=== PATIENT | female | born 1965 | race Caucasian/White ===

== ENCOUNTER → 2019-04-09 15:54 | Outpatient (CLI) | payer OTHER, SELFPAY ==
--- NOTE | 2019-04-09 15:56 | DI.RAD.S_ITS ---
PROCEDURE: XR CHEST 2V INDICATIONS: Cough x 6 weeks TECHNIQUE: 2 views of the chest were acquired. COMPARISON: None. FINDINGS: Surgical changes and devices: Sternotomy. Lungs and pleura: Lungs are clear. No pleural effusions or pneumothorax. Mediastinum: Mediastinal contours are normal. Heart size is normal. Bones and chest wall: No suspicious bony abnormalities. Soft tissues appear unremarkable. IMPRESSION: No acute cardiopulmonary disease. Dictated by: Aimee Narvaez M.D. on 04/09/2019 at 16:30 Approved by: Aimee Narvaez M.D. on 04/09/2019 at 16:30
== END ==
PROVIDERS: PCP Nurse Practitioner Family; Visit Provider Nurse Practitioner
DX: R05 Cough (principal)
CPT/HCPCS: 71046

== ENCOUNTER → 2019-06-19 18:11 | Outpatient (CLI) | payer OTHER, SELFPAY | PROVIDERS: PCP Nurse Practitioner Family; Visit Provider Physician Assistant | DX: J02.9 Acute pharyngitis, unspecified (principal) | CPT/HCPCS: 87070 ==

== ENCOUNTER 2021-05-06 01:42 | Emergency (ER) | payer OTHER, SELFPAY ==
[2021-05-06 01:49] VITALS: BP 127/73; PULSE 92; RESP 18; TEMP 36.2; O2SAT 99; BMI 28.3
--- NOTE | 2021-05-06 02:09 | DI.CT.S_ITS ---
PROCEDURE: CT ABDOMEN PELVIS W CON INDICATIONS: severe right lower quadrant pain, local peritonitis TECHNIQUE: After the administration of oral and IV contrast, axial sections were acquired from the lung bases to the pubic symphysis. Coronal and sagittal reformats were performed. For radiation dose reduction, the following was used: automated exposure control, adjustment of mA and/or kV according to patient size. COMPARISON: None. FINDINGS: Image quality: Excellent. Lung bases: On series 3, image 5, there is a 3 mm soft tissue nodule noted. The lung bases are otherwise unremarkable. Heart: No significant findings. ABDOMEN: Liver: There is prominent in size and demonstrates normal overall density. No suspicious liver lesions are seen. Gallbladder: Unremarkable. Biliary ducts: Unremarkable. Pancreas: Unremarkable. Spleen: Unremarkable. Adrenal Glands: Unremarkable. Kidneys and Ureters: Unremarkable. Stomach and Bowel: In this patient with this given history, scrutiny is given to the appendix. The appendix appears normal. Distal colonic diverticulosis is seen. There is focal wall thickening seen involving the sigmoid colon, with moderate surrounding inflammatory change and a small amount of free fluid. No abscess can be seen. A moderate amount of stool is seen within the colon. No dilated loops of small bowel are seen. Peritoneum: No free air. Ventral Wall: No hernia. Abdominal Nodes: No retroperitoneal or mesenteric adenopathy by size criteria. Vessels: Aorta and inferior vena cava are normal in size. PELVIS: Pelvic Organs: The uterus appears normal. No adnexal masses are seen on either side. Bladder: Unremarkable. Pelvic Nodes: No enlarged lymph nodes. Miscellaneous: No inguinal hernias are seen. Bones: Focal degenerative change can be seen at L4-L5 and L5-S1. Milder degenerative changes are seen elsewhere. Minimal levoconvex scoliotic curvature is seen. IMPRESSION: Moderate sigmoid diverticulitis. No patricio findings of perforation or abscess can be seen. Normal appendix. There is a moderate amount of stool seen within the colon. Please correlate with an underlying history of constipation. 3 mm left lower lobe soft tissue nodule seen. By published criteria, no specific imaging follow-up recommended, although attention should be paid to this focus on any future follow-up studies. Incidental note is made of: Hepatomegaly Focal lower lumbar spine degenerative change Note: No significant discrepancy from the preliminary report. Dictated by: Bryon Lake M.D. on 05/06/2021 at 8:01 Approved by: Bryon Lake M.D. on 05/06/2021 at 8:07
[2021-05-06] MEDS: SODIUM CHLORIDE 0.9% 1,000 ML 150 ML IV (02:27)
[2021-05-06 02:29] LABS: Add Manual Diff / Slide Review NO; Basophils Absolute Auto 0 /uL (0-100); Basophils Percent Auto 0.2 % (0-2); Eosinophils Absolute Auto 0 /uL (0-450); Eosinophils Percent Auto 0.5 % (2-4); Hematocrit 36.9 % (36-46); Lymphocytes Absolute Auto 1000 /uL (1100-4500); Lymphocytes Percent Auto 11.8 % (25-40); Mean Corpuscular HGB Conc 35.2 % (30-36); Mean Corpuscular Hemoglobin 29.9 PG (26-34); Mean Corpuscular Volume 84.8 fL (80-100); Monocytes Absolute Auto 700 /uL (0-900); Monocytes Percent Auto 7.5 % (3-14); Neutrophils Absolute Auto 7000 /uL (1500-7000); Platelet Count 194 X10^3/uL (150-400); Red Blood Cell Count 4.35 X10^6/uL (4.0-5.2); Red Cell Distribution Width 13.1 % (11.6-14.8); White Blood Cell Count 8.8 X10^3/uL (4.5-11.0)
[2021-05-06 02:39] LABS: Alanine Aminotransferase 8 IU/L (<35); Albumin 4.3 g/dL (3.5-5.0); Albumin Globulin Ratio 1.4 (1.0-2.8); Alkaline Phosphatase 76 U/L (38-126); Aspartate Aminotransferase 21 IU/L (14-36); BUN Creatinine Ratio 24.6 (6-22); Bilirubin Total 0.7 mg/dL (0.2-1.3); Blood Urea Nitrogen 14 mg/dL (7-17); Calcium 9.5 mg/dL (8.4-10.2); Carbon Dioxide 30 mmol/L (22-32); Chloride 105 mmol/L (98-107); Estimated Glomerular Filt Rate > 60.0 mL/min (>60); Glucose 116 mg/dL (70-100); HEMOLYSIS < 15 (0-50); Lipase 418 U/L (23-300); Sodium 139 mmol/L (137-145); Total Protein 7.3 g/dL (6.3-8.2)
--- NOTE | 2021-05-06 03:43 | ED_ITS ---
HPI - Abdominal Pain General Chief Complaint: Abdominal Pain Stated Complaint: lower abdominal pain Time Seen by Provider: 05/06/21 02:02 Source: patient Mode of arrival: Ambulatory History of Present Illness HPI narrative: 55-year-old female nonsmoker with noncontributory medical history presents with a chief complaint of gradually worsening lower abdominal pain over the past few hours. She states that it is of stabbing and cramping pain in her lower abdomen that is made worse by motion and improves with rest. She is nauseated but denies any vomiting. She denies any fever or chills. She has had no urinary complaints such as dysuria, frequency or urgency. She denies any history of the same. She has had no change in medications or diet. She denies recent travel or use of antibiotics Related Data Previous Rx's Medication Instructions Recorded amoxicillin 875 mg-potassium 1 tab PO BID #20 tab 05/06/21 clavulanate 125 mg tablet (Augmentin) Allergies Allergy/AdvReac Type Severity Reaction Status Date / Time No Known Drug Allergies Allergy Verified 05/06/21 02:27 Review of Systems Review of Systems Narrative: GENERAL: Denies chills, fatigue, malaise, fever, sweats. HEENT: Denies sinus pain, ear pain, sore throat, difficulty swallowing, dizziness. RESPIRATORY: Denies dyspnea, cough, wheezing, hemoptysis, sputum. CARDIOVASCULAR: Denies chest pain, palpitations, orthopnea, edema, GASTROINTESTINAL: See HPI : Denies dysuria, frequency, incontinence, hematuria, urinary retention. MUSCULOSKELETAL: denies weakness, joint pain, or bony pain SKIN: Denies rash, skin lesions, or other NEUROLOGIC: Denies weakness, headache, numbness, change in speech, confusion, seizures, incoordination. PSYCHIATRIC: No concerning psychosocial issues. 12 point review of systems is negative except for those stated above Patient History Social History Smoking Status: Never smoker Smoking Status: Never smoker Substance Use Type: does not use Exam Narrative Exam Narrative: GENERAL: 55 year old patient appears stated age. Well-developed patient, in mild distress. HEAD: Atraumatic. Normocephalic. EYES: Pupils equal round and reactive. Extraocular motions intact. No scleral icterus. No injection or drainage. ENT: Nose without bleeding, purulent drainage. Throat without erythema, tonsillar hypertrophy or exudate. Airway patent. NECK: Trachea midline. Non tender CARDIOVASCULAR: Regular rate and rhythm without murmurs, gallops, or rubs. RESPIRATORY: Clear to auscultation. Breath sounds equal bilaterally. No wheezes, rales, or rhonchi. GASTROINTESTINAL: Abdomen soft, lower abdomen tender to palpate, nondistended. EXTREMITIES: No edema or joint tenderness. BACK: Nontender without deformity or crepitance. No flank tenderness. NEURO: AOx3. SKIN: No rash or erythema of visible areas Initial Vital Signs Initial Vital Signs: Vital Signs Temperature 97.2 F L 05/06/21 01:49 Pulse Rate 92 H 05/06/21 01:49 Respiratory Rate 18 05/06/21 01:49 Blood Pressure 127/73 05/06/21 01:49 Pulse Oximetry 99 05/06/21 01:49 Course Orders Ordered: Discontinued Medications Amoxicillin/Clavulanate Potassium (Amoxicillin/Clav 875/125 Mg) 1 tab PO NOW ONE Stop: 05/06/21 03:45 Last Admin: 05/06/21 03:59 Dose: 1 tab Documented by: RACHELLE Sodium Chloride (Normal Saline 0.9%) 1,000 mls @ 150 mls/hr IV CONT ARVIND Last Admin: 05/06/21 02:27 Dose: 150 mls/hr Documented by: TEE Vital Signs Vital signs: Vital Signs - 8 hr 05/06/21 01:49 05/06/21 03:57 Temperature 97.2 F L Pulse Rate 92 H 72 Respiratory Rate 18 16 Blood Pressure 127/73 119/74 Pulse Oximetry 99 99 MDM - Abdominal Pain Lab Data Result diagrams: 05/06/21 02:24 05/06/21 02:24 Labs: Lab Results 05/06/21 05/06/21 Range/Units 02:24 02:24 WBC 8.8 (4.5-11.0) X10^3/uL RBC 4.35 (4.0-5.2) X10^6/uL Hgb 13.0 (12.0-16.0) g/dL Hct 36.9 (36-46) % MCV 84.8 (80-100) fL MCH 29.9 (26-34) PG MCHC 35.2 (30-36) % RDW 13.1 (11.6-14.8) % Plt Count 194 (150-400) X10^3/uL Neut % (Auto) 80.0 H (50-75) % Lymph % (Auto) 11.8 L (25-40) % [place] % (Auto) 7.5 (3-14) % Eos % (Auto) 0.5 L (2-4) % Baso % (Auto) 0.2 (0-2) % Neut # (Auto) 7000 (5660-8409) /uL Lymph # (Auto) 1000 L (0426-5910) /uL [place] # (Auto) 700 (0-900) /uL Eos # (Auto) 0 (0-450) /uL Baso # (Auto) 0 (0-100) /uL Sodium 139 (137-145) mmol/L Potassium 4.0 (3.4-5.1) mmol/L Chloride 105 (98-107) mmol/L Carbon Dioxide 30 (22-32) mmol/L BUN 14 (7-17) mg/dL Creatinine 0.57 (0.52-1.04) mg/dL Estimated GFR > 60.0 (>60) mL/min BUN/Creatinine Ratio 24.6 H (6-22) Glucose 116 H (70-100) mg/dL Calcium 9.5 (8.4-10.2) mg/dL Total Bilirubin 0.7 (0.2-1.3) mg/dL AST 21 (14-36) IU/L ALT 8 (<35) IU/L Alkaline Phosphatase 76 (38-126) U/L Total Protein 7.3 (6.3-8.2) g/dL Albumin 4.3 (3.5-5.0) g/dL Globulin 3.0 (1.7-4.1) g/dL Albumin/Globulin Ratio 1.4 (1.0-2.8) Lipase 418 H (23-300) U/L Point of care testing: Urine Dip Bedside Urine Glucose Negative Bedside Urine Bilirubin - Negative Bedside Urine Ketone - Negative Urine Specific Opal 1.025 Bedside Urine Occult Blood - Negative Bedside Urine pH 6 Bedside Urine Protein - Negative Bedside Urine Urobilinogen - Negative Bedside Urine Nitrite - Negative Bedside Urine Leukocytes - Negative Esterase Imaging Data CT scan - abdomen/pelvis: Radiologist's Impression: Launch?[address] [address] [address] Scan Report Signed Patient: Jessica Kim MR#: [id number] : 1965 Acct:[id number] Age/Sex: 55 / F Date of Service: 05/06/21 Loc: ED Accession Number: [id number] ?? Procedure: CT abdomen pelvis w con Ordering Provider: Sarabjit Hunter D.O. PROCEDURE:? CT ABDOMEN PELVIS W CON ? INDICATIONS:? severe right lower quadrant pain, local peritonitis ? TECHNIQUE:? After the administration of oral and IV contrast, axial sections were acquired from the lung bases to the pubic symphysis.? Coronal and sagittal reformats were performed.? For radiation dose reduction, the following was used:? automated exposure control, adjustment of mA and/or kV according to patient size. ? COMPARISON:? None. ? FINDINGS:? Image quality:? Excellent.? ? Lung bases:? On series 3, image 5, there is a 3 mm soft tissue nodule noted.? The lung bases are otherwise unremarkable. Heart:? No significant findings. ? ? ABDOMEN: Liver:? There is prominent in size and demonstrates normal overall density.? No suspicious liver lesions are seen. Gallbladder:? Unremarkable.? ? Biliary ducts:? Unremarkable.? ? Pancreas:? Unremarkable.? ? Spleen:? Unremarkable.? ? Adrenal Glands:? Unremarkable.? ? Kidneys and Ureters:? Unremarkable.? ? ? Stomach and Bowel:? In this patient with this given history, scrutiny is given to the appendix.? The appendix appears normal. Distal colonic diverticulosis is seen.? There is focal wall thickening seen involving the sigmoid colon, with moderate surrounding inflammatory change and a small amount of free fluid.? No abscess can be seen.? A moderate amount of stool is seen within the colon. No dilated loops of small bowel are seen. Peritoneum:? No free air.? ? Ventral Wall: ? No hernia.? Abdominal Nodes:? No retroperitoneal or mesenteric adenopathy by size criteria.? Vessels:? Aorta and inferior vena cava are normal in size.? ? PELVIS: Pelvic Organs: ? The uterus appears normal.? No adnexal masses are seen on either side.? Bladder:? Unremarkable.? ? Pelvic Nodes: No enlarged lymph nodes.? Miscellaneous: No inguinal hernias are seen. ? ? ? Bones:? Focal degenerative change can be seen at L4-L5 and L5-S1.? Milder degenerative changes are seen elsewhere.? Minimal levoconvex scoliotic curvature is seen. ? ? IMPRESSION:? Moderate sigmoid diverticulitis.? No patricio findings of perforation or abscess can be seen. ? Normal appendix. ? There is a moderate amount of stool seen within the colon. Please correlate with an underlying history of constipation.? ? 3 mm left lower lobe soft tissue nodule seen.? By published criteria, no specific imaging follow-up recommended, although attention should be paid to this focus on any future follow-up studies. ? ? Incidental note is made of: Hepatomegaly Focal lower lumbar spine degenerative change ? ? Note: No significant discrepancy from the preliminary report. ? Dictated by: Bryon Lake M.D. on 05/06/2021 at 8:01 ? ? Approved by: Bryon Lake M.D. on 05/06/2021 at 8:07 ? MDM Narrative Medical decision making narrative: Multiple etiologies for patient's symptoms considered including: [Appendicitis versus kidney stone versus ovarian problem vs. bowel obstruction vs. other Patient's symptoms improved over duration of stay with above-stated therapies. Pain is well controlled, she is tolerating orals without difficulty. Findings and discharge diagnosis discussed with patient/family followed by verbalization of understanding Return precautions discussed with patient/family whom verbalize understanding. Discharge Plan Departure Patient Disposition: Home Clinical Impression: Diverticulitis Instructions: DI for Diverticulitis Activity Restrictions/Additional Instructions: *You have been diagnosed with [diverticulitis without evidence of abscess or perforation *What to do: *Please continue to take your regular medications as directed. [ x] New medication prescriptions sent to your pharmacy: [[facility] in [place]] [ ] New medication written as a paper prescription [ ] No new medications given *Please follow up with your primary care provider in 2-3 days, call for an appointment. Let them know you were seen in the Emergency Department and that we ask that you be seen in follow up. We will electronically transmit a record of today's note if your PCP is in our system * as we discussed, please consider a clear liquid diet for the next 24-48 hours *Return to Emergency Department if you should have any new, worsening or concerning symptoms, such as [fever greater than 101 F, shaking chills, worsening pain, persistent vomiting or other bothersome symptoms] Prescriptions: New amoxicillin-pot clavulanate [Augmentin] 875-125 mg tablet 1 tab PO BID Qty: 20 0RF Referrals: Myrna Abel PA-C [Primary Care Provider] -
[2021-05-06 03:57] VITALS: BP 119/74; PULSE 72; RESP 16; O2SAT 99
[2021-05-06] MEDS: AMOXICILLIN/CLAV 875/125 MG 1 TAB PO (03:59)
== END 2021-05-06 04:16 | disposition home or self-care (01) ==
PROVIDERS: Emergency Provider Emergency Medicine; PCP Physician Assistant Medical
DX: K57.32 Diverticulitis of large intestine without perforation or abscess without bleeding (principal)
CPT/HCPCS: 36415; 74177; 80053; 81003; 83690; 85025; 99284; Q9967

== ENCOUNTER → 2021-05-20 13:24 | Outpatient (CLI) | payer OTHER, SELFPAY ==
--- NOTE | 2021-05-20 13:26 | DI.MG.S_ITS ---
BILATERAL DIGITAL SCREENING MAMMOGRAM 3D/2D WITH CAD: 05/20/2021 CLINICAL: Routine screening. Comparison is made to exams dated: 05/14/2018 mammogram, 04/30/2017 mammogram, and 03/12/2016 mammogram - [facility]. There are scattered fibroglandular elements in both breasts. Current study was also evaluated with a Computer Aided Detection (CAD) system. No significant masses, calcifications, or other findings are seen in either breast. There has been no significant interval change. IMPRESSION: NEGATIVE There is no mammographic evidence of malignancy. A 1 year screening mammogram is recommended. This exam was interpreted at Station ID: [id number]. NOTE: For mammograms, a report in lay terms will be sent to the patient. Approximately 15% of breast malignancies will not be visualized mammographically. In the management of a palpable breast mass, a negative mammogram must not discourage biopsy of a clinically suspicious lesion. Electronically Signed By: Campbell turk/suraj:05/22/2021 08:02:22 letter sent: Normal Exam ACR BI-RADS Category 1: Negative [id number]
== END ==
PROVIDERS: PCP Nurse Practitioner Family; Referring Provider Nurse Practitioner Family; Visit Provider Nurse Practitioner Family
DX: Z12.31 Encounter for screening mammogram for malignant neoplasm of breast (principal)
CPT/HCPCS: 77063; 77067

== ENCOUNTER 2021-09-14 12:54 | Day surgery (SDC) | payer OTHER, SELFPAY ==
[2021-09-14] VITALS (7 sets, daily range): BP systolic 110–135; BP diastolic 74–84; PULSE 70–97; RESP 16; TEMP 36.4–37.2; O2SAT 98–99; BMI 29.2
--- NOTE | 2021-09-14 | DI.RAD.S_ITS ---
PROCEDURE: XR ABDOMEN 1V INDICATIONS: Rule out free air TECHNIQUE: One view of the abdomen acquired. Lateral decubitus. COMPARISON: [facility], CT, CT ABDOMEN PELVIS W CON, 05/06/2021, 2:53. FINDINGS: Surgical changes and devices: None. Bowel: Prominent bowel gas in the nondependent right abdomen. This mostly appears to be within the colon. No free air is seen. Soft tissues: No suspicious abdominal calcifications. Visualized solid organ contours appear normal in size. Right hemithorax appears clear. Bones: No suspicious bony lesions. IMPRESSION: No free air identified. Prominent bowel gas (likely colonic) in the right abdomen. Consider additional radiographic views of the abdomen or CT abdomen pelvis. Dictated by: Jason Sabillon M.D. on 09/14/2021 at 16:29 Approved by: Jason Sabillon M.D. on 09/14/2021 at 16:30
--- NOTE | 2021-09-14 | PATH_ITS ---
[facility] Accession Number: [id number] . 01 Material submitted: . sigmoid colon - SIGMOID LESION . 01 Diagnosis: Sigmoid Colon, Biopsy: Ulcerated colonic mucosa with foreign body giant cell reaction. Please see comment. Negative for dysplasia and malignancy. MRV 09/19/2021 1330 Local . 01 Comment: The sigmoid biopsies show hyperplastic colonic mucosa with active inflammation and ulceration with an accompanying foreign body giant cell reaction. No obvious viral cytopathic effects or paracytic organisms are identified. The differential diagnosis includes infection, medication-related mucosal injury, foreign body reaction (so-called cereal granuloma), and diverticular disease-associated colitis. There is no evidence of dysplasia or malignancy. . 01 Electronically signed: . Babs Burger MD, Pathologist NPI- [id number] . 01 Gross description: . SIGMOID LESION: Received in formalin are 2 fragment(s) of orellana, soft tissue measuring 0.3 x 0.3 x 0.2 cm to 0.2 x 0.2 x 0.1 cm submitted entirely in 1 cassette(s) /CPE 09/16/2021 0258 Local . 01 Pathologist provided ICD-10: Z86.010 . 01 CPT . 982552 Specimen Comment: A courtesy copy of this report has been sent to [phone] Performed at: 01 [facility] [address] [place] [address], [place], [place] [id number] MD Nolan Hagen MD Phone: [phone]
[2021-09-14] MEDS: LACTATED RINGERS 1,000 ML 42 ML IV (13:20)
--- NOTE | 2021-09-14 15:10 | PM.HP.1 ---
History of Present Illness History of Present Illness Date Patient Seen: 09/14/21 Time Patient Seen: 15:10 Chief complaint: SDC Narrative: 56-year-old woman who had a colonoscopy about 5 years ago with polyps removed. She also has a family history of colon cancer with her mother was diagnosed with colon cancer in her 40s and also a second time later and life. Patient History Medical History (Updated 09/14/21 @ 15:11 by John Gomez MD) Dyspareunia Encounter for wellness examination in adult (03/2021) Hepatomegaly (04/2021) History of chicken pox Left lower lobe pulmonary nodule (04/2021) MRSA elsewhere/NOS (~2017) Pap smear of cervix shows high risk HPV present (~04/2019) Pharyngitis Rash due to allergy Raynaud's phenomenon Vertigo (09/25/19) Surgical History (Updated 05/11/21 @ 09:23 by Jyo Moralez) History of open heart surgery (~1969) Family & Social History Family History (System 05/11/21 @ 09:23 by Joy Moralez) Mother Cancer Hypertension Stroke Brother Diabetes mellitus Hypertension Hyperlipidemia Stroke Heart disease Obesity Grandfather Diabetes mellitus Social History: household members spouse other Walking and Running Tobacco & Substance use: Smoking Status Never smoker alcohol intake never Substance Use Type does not use Meds Home Medications and Allergies Home Medications Medication Instructions Recorded Confirmed Type multivitamin 1 tab PO DAILY 01/22/19 09/14/21 History sodium sul 1.479 gram-potas ch See Rx Instructions PO PER PKG DIR 08/28/21 Rx 0.188 gram-magnes sul 0.225 gram #24 tab tablet (Sutab) Allergies Allergy/AdvReac Type Severity Reaction Status Date / Time amoxicillin [From Augmentin] Allergy Intermediate Rash Verified 06/26/21 09:54 clavulanic acid Allergy Intermediate Rash Verified 06/26/21 09:54 [From Augmentin] Exam Vital Signs (past 8 hours): - 09/14/21 13:09 Temperature 98.9 F Pulse Rate 75 Respiratory Rate 16 Blood Pressure 115/74 Pulse Oximetry 99 Oxygen Delivery Method Room Air Const General: healthy appearing Resp Effort & Inspection: normal respiratory effort Assessment & Plan Assessment and plan (1) Personal history of colonic polyps: Status: Acute Plan 56-year-old woman with a history of colon polyps and a family history of colon cancer. We reviewed the risks and benefits of colonoscopy and she would like to proceed. Time Spent With Patient Critical Care time: I spent a total of [] minutes of critical care time on this patient's care today; this time is exclusive of procedural time.
--- NOTE | 2021-09-14 15:37 | SUR.OPER ---
1527: Anesthesia provider requested by Dr Gomez. Dr Sanchez arrived to administer sedation for patient for remainder of procedure. Please see anesthesia record for medications administered after 1526.
[2021-09-14] MEDS: MIDAZOLAM 5 MG/5 ML VIAL 8 MG IV (15:45)
[2021-09-14] MEDS: fentaNYL 250 MCG/5 ML INJ 225 MCG IV (15:45)
--- NOTE | 2021-09-14 15:56 | PM.OP.COLON ---
Operative Date/Time/Diagnoses Date of procedure: 09/14/21 Time of procedure: 15:56 Pre-op diagnosis: Personal history of colon polyps and family history of colon cancer Post-op diagnosis: same Procedure & Clinicians Study performed: Colonoscopy Same procedure as scheduled: Yes Procedure Notes Procedure in detail: Surgeon: John Gomez MD Procedure: The patient was brought to the endoscopy suite, placed in left lateral decubitus position. The patient was connected to monitoring devices. A time-out was performed. Sedation was administered with Versed and fentanyl. Once the patient was adequately sedated, a digital rectal exam was performed and was normal. The scope was then inserted and advanced. The patient complained of significant pain and Dr. Sanchez of Anesthesia was consulted for procedure 0 propofol administration. Once she was fully sedated the scope was able to be advanced to the cecum where the appendiceal orifice was identified and photographed. The scope was then slowly withdrawn over greater than 6 minutes. Mucosa was thoroughly inspected. There was a large erythematous lesion in the sigmoid colon which was thought to be a large polyp or simply an inflamed fold she had biopsies taken of the Jumbo forceps and unexpectedly purulent fluid drained from the biopsy site. This raise the possibility of a diverticular abscess bulging into the wall of the sigmoid colon. There were no obvious diverticula in the region. The remainder of the colon was normal. The scope was retroflexed in the rectum. No abnormalities were noted. The scope was straightened and removed. The patient was awakened and brought to recovery. Versed: 8 mg Fentanyl: 225 mcg EBL: 5 mL Findings: Unexplained erythematous mucosal fold in the sigmoid colon with purulent drainage. Scope withdrawal time: 10 Sedation minutes: 14 Post-procedure Recommendations: Will call with biopsy results Disposition: PACU
[2021-09-14] MEDS: ONDANSETRON 4 MG/2 ML INJ (16:23)
--- NOTE | 2021-09-14 16:31 | SUR.PHASEII ---
at bedside. Patient states she is feeling better; denies any nausea or pain; abdomen soft and non-distended.
--- NOTE | 2021-09-14 16:59 | SUR.PHASEII ---
Dr Gomez at bedside speaking with patient. Okay to discharge patient home with instructions to return to [facility] if any new symptoms such as severe abdominal pain occurs. V/U.
== END 2021-09-14 17:13 | disposition home or self-care (01) ==
PROVIDERS: PCP Registered Nurse Diabetes Educator; Referring Provider Surgery; Visit Provider Surgery
PROC: 0DJD8ZZ Inspection of Lower Intestinal Tract, Via Natural or Artificial Opening Endoscopic (ICD-10-PCS; CPT 45378; principal; 2021-09-14 14:30)
DX: Z12.11 Encounter for screening for malignant neoplasm of colon (principal); Z86.010 Personal history of colon polyps; Z80.0 Family history of malignant neoplasm of digestive organs; K63.3 Ulcer of intestine
CPT/HCPCS: 45380; 74018; 99152; J2250; J2405; J3010

== ENCOUNTER → 2022-05-09 10:39 | Outpatient (CLI) | payer OTHER, SELFPAY ==
--- NOTE | 2022-05-09 10:44 | DI.RAD.S_ITS ---
PROCEDURE: XR ANKLE RT MIN 3V INDICATIONS: Right ankle swelling TECHNIQUE: 3 views of the ankle were acquired. COMPARISON: None. FINDINGS: Bones: No fractures or dislocations. Ankle mortise is normally aligned. No suspicious bony lesions. Small plantar calcaneal spur. Soft tissues: Swelling at the lateral and anterior ankle. No tibiotalar joint effusion. Achilles tendon appears normal. IMPRESSION: Swelling at the lateral and anterior ankle. No fracture seen. Dictated by: Jason Sabillon M.D. on 05/09/2022 at 21:21 Approved by: Jason Sabillon M.D. on 05/09/2022 at 21:22
== END ==
PROVIDERS: PCP Registered Nurse Diabetes Educator; Referring Provider Nurse Practitioner Family; Visit Provider Nurse Practitioner Family
DX: M25.471 Effusion, right ankle (principal); L03.90 Cellulitis, unspecified; M77.31 Calcaneal spur, right foot
CPT/HCPCS: 73610

== ENCOUNTER → 2022-11-24 12:55 | Outpatient (CLI) | payer OTHER, SELFPAY ==
--- NOTE | 2022-11-24 12:58 | DI.RAD.S_ITS ---
PROCEDURE: XR FOOT LT MIN 3V INDICATIONS: Left lateral foot pain proximal to 5th MTP TECHNIQUE: 3 views of the foot were acquired. COMPARISON: None. FINDINGS: Bones: No fractures or dislocations. No suspicious bony lesions. Soft tissues: No tibiotalar joint effusion. Achilles tendon appears normal. IMPRESSION: No acute bony abnormality. Dictated by: Jeffy Mathias M.D. on 11/24/2022 at 15:40 Approved by: Jeffy Mathias M.D. on 11/24/2022 at 15:41
== END ==
PROVIDERS: PCP Registered Nurse Diabetes Educator; Referring Provider Registered Nurse Diabetes Educator; Visit Provider Registered Nurse Diabetes Educator
DX: M79.672 Pain in left foot (principal)
CPT/HCPCS: 73630

== ENCOUNTER 2023-06-23 01:16 | Observation (INO) | payer OTHER, SELFPAY ==
[2023-06-23] VITALS (25 sets, daily range): BP systolic 102–134; BP diastolic 53–78; PULSE 64–96; RESP 15–26; TEMP 36.1–37.4; O2SAT 92–100; BMI 26.6
--- NOTE | 2023-06-23 | PATH_ITS ---
[facility] Accession Number: [id number] No. of containers..01 Tissue . 01 Material submitted: . appendix - APPENDIX . 01 Diagnosis: APPENDIX, APPENDECTOMY: Acute and periappendicitis. MRV 06/27/2023 1234 Local . 01 Electronically signed: . Yarely Paredes MD, Pathologist NPI- [id number] . 01 Gross description: . The specimen is received in formalin, labeled with the patient's name, , and appendix, and consists of a orellana vermiform appendix measuring 6.1 cm in length by 0.8 cm in diameter with orellana roughened serosa and adherent material consistent with exudate. The margins is inked blue, and sectioning reveals a patent lumen averaging 0.3 cm in diameter filled with brown fluid. The barry are shirley-orellana, averaging 0.2 cm thick, with no perforations or lesions identified. Card Boxer sections to include the margin, one-half of the bisected distal tip, and cross sections are submitted in cassette A1. ([id number]) /MRV 06/26/2023 1502 Local . 01 Pathologist provided ICD-10: K35.80 . 01 CPT . 571891 Specimen Comment: A courtesy copy of this report has been sent to [phone] Performed at: 01 [facility] includes the [facility] [address] [place] [address], [place], [place] [id number] MD Nolan Hagen MD Phone: [phone]
[2023-06-23] MEDS: ONDANSETRON 4 MG/2 ML INJ IV (01:59)
--- NOTE | 2023-06-23 02:15 | ED.ABDPAIN ---
HPI - Abdominal Pain General Chief Complaint: Abdominal Pain Stated Complaint: abd pain, vomiting Time Seen by Provider: 06/23/23 01:56 Source: patient Mode of arrival: Ambulatory Limitations: no limitations History of Present Illness HPI narrative: 57-year-old female with history of open heart surgery for hole in her heart and valvular issue as a child. Patient presents with complaint of onset of right-sided abdominal pain starting earlier this evening, nausea and vomiting. Patient states no fevers or chills. No chest pain or shortness of breath. Pain seems upper and lower does not appreciated the flank. Pain does radiate over towards the left. Patient states she has been throwing up what looks like yellow. No blood. Had a bowel movement earlier this evening was formed. No black or bloody stools. No dysuria, urgency or frequency. No vaginal bleeding. Patient has had diverticulitis in the past but she states this feels very different. She has not on any daily medications. She has had a right TMJ surgery, her open heart surgery when she was very young. No tobacco, no alcohol or recreational drugs. Related Data Home Medications Medication Instructions Recorded Confirmed multivitamin 1 tab PO DAILY 01/22/19 12/11/22 Allergies Allergy/AdvReac Type Severity Reaction Status Date / Time amoxicillin [From Augmentin] Allergy Intermediate Rash Verified 06/23/23 01:42 clavulanic acid Allergy Intermediate Rash Verified 06/23/23 01:42 [From Augmentin] Review of Systems Review of Systems ROS Unobtainable: All systems reviewed & are unremarkable except as noted in HPI and below Patient History Medical History Dyslipidemia Right-sided temporomandibular joint pain-dysfunction syndrome Rash due to allergy Left lower lobe pulmonary nodule (04/2021) Hepatomegaly (04/2021) Encounter for wellness examination in adult (03/2021) Dyspareunia Vertigo (09/25/19) Pharyngitis Pap smear of cervix shows high risk HPV present (~04/2019) MRSA elsewhere/NOS (~2017) History of chicken pox Raynaud's phenomenon Surgical History History of open heart surgery (~1970) Family History Mother Cancer Hypertension Stroke Brother Diabetes mellitus Hypertension Hyperlipidemia Stroke Heart disease Obesity Grandfather Diabetes mellitus Social History marital status: household members: spouse education level: college occupational status: employed current occupational exposures/hazards: No ([employer]) dolores/lutheran: Quaker travel history: recurrent leisure activities: other other: Walking and Running seatbelt use: always helmet use: Yes water heater temp set < 120 deg: Yes working smoke detector in home: Yes fire extinguisher in home: Yes carbon monox detector in home: Yes firearms in home: No do you feel safe at home: Yes Smoking Status: Never smoker second hand exposure: No alcohol intake: never substance use type: does not use during the past year weight has: remained stable well-balanced diet: daily or most days daily servings fruits/ve-4 caffeine: Yes (1-3 drinks per week soda) eating out: 1-3 times/week Type(s) of exercise: walking and running frequency: 5-6 times per week duration: 60-90 minutes/day additional social history: Travel history:[facility] and several trips to [facility] Smoking Status: Never smoker Substance Use Type: does not use Exam Narrative Exam Narrative: GENERAL: Alert and oriented x three, female in moderate distress HEENT: Head normocephalic, atraumatic, EOMI, pupils reactive, face symmetric, moist mucous membranes NECK: Supple, full range of motion CARDIOVASCULAR: Regular rate and rhythm without murmurs, rubs or gallops. RESPIRATORY: Breath sounds equal bilaterally, no wheezes rales or rhonchi. ABDOMEN: Soft, right upper and lower quadrant tenderness. Normoactive bowel sounds all 4 quadrants. No guarding or rebound, rigidity, no mass, no pulsatile mass or bruit. : No CVA tenderness EXTREMITIES: Normal range of motion, no clubbing or edema. Neurovascularly intact NEUROLOGICAL: Cranial nerves II through XII grossly intact. Moving all extremities SKIN: Warm, dry, no petechiae, no rashes or lesions. Initial Vital Signs Initial Vital Signs: Vital Signs Temperature 97.5 F L 06/23/23 01:40 Pulse Rate 71 06/23/23 01:40 Respiratory Rate 16 06/23/23 01:40 Blood Pressure 134/74 06/23/23 01:40 Pulse Oximetry 100 06/23/23 01:40 Oxygen Delivery Method Room Air 06/23/23 01:40 Course Orders Ordered: ED Orders 06/23/23 01:45 EKG-12 Lead Stat 06/23/23 01:55 Complete Blood Count AUTO DIFF Stat Comprehensive Metabolic Panel Stat Lipase Stat 06/23/23 02:38 CT abdomen pelvis w con Stat Levofloxacin (Levaquin) 750 mg in 150 mls @ 100 mls/hr IV NOW ONE Stop: 06/23/23 06:03 Last Admin: 06/23/23 04:40 Dose: 100 mls/hr Documented By: HNLadi Sodium Chloride (Normal Saline 0.9%) 1,000 mls @ 125 mls/hr IV CONT ARVIND Last Admin: 06/23/23 04:56 Dose: 125 mls/hr Documented By: Ondansetron HCl (Ondansetron 4 Mg Odt) 4 mg PO NOW PRN PRN Reason: Nausea And Vomiting Ondansetron HCl (Ondansetron 4 Mg/2 Ml Inj) 4 mg IV NOW PRN PRN Reason: Nausea And Vomiting Last Admin: 06/23/23 01:59 Dose: 4 mg Documented By: Discontinued Medications Sodium Chloride (Normal Saline 0.9%) 1,000 mls @ 1,000 mls/hr IV BOLUS ONE Stop: 06/23/23 03:37 Last Infusion: 06/23/23 03:51 Dose: Infused Documented By: Admin: 06/23/23 03:03 Dose: 1,000 mls/hr Documented By: Ketorolac Tromethamine (Ketorolac 30 Mg/Ml Vial) 15 mg IV NOW ONE Stop: 06/23/23 02:39 Last Admin: 06/23/23 03:06 Dose: 15 mg Documented By: Metoclopramide HCl (Metoclopramide 10 Mg/2 Ml Inj) 10 mg IV NOW ONE Stop: 06/23/23 02:39 Last Admin: 06/23/23 03:05 Dose: 10 mg Documented By: Vital Signs Vital signs: Vital Signs - 8 hr 06/23/23 01:40 06/23/23 01:48 06/23/23 02:00 Temperature 97.5 F L Pulse Rate 71 64 66 Respiratory Rate 16 Blood Pressure 134/74 Pulse Oximetry 100 96 96 Oxygen Delivery Method Room Air 06/23/23 02:30 06/23/23 03:00 06/23/23 03:05 Temperature Pulse Rate 88 66 66 Respiratory Rate Blood Pressure Pulse Oximetry 97 98 98 Oxygen Delivery Method Room Air Room Air 06/23/23 03:05 06/23/23 03:37 06/23/23 03:37 Temperature Pulse Rate 72 Respiratory Rate Blood Pressure 121/73 128/74 Pulse Oximetry 99 Oxygen Delivery Method Room Air 06/23/23 04:00 06/23/23 04:00 Temperature Pulse Rate 72 Respiratory Rate Blood Pressure 114/65 Pulse Oximetry 99 Oxygen Delivery Method Room Air MDM - Abdominal Pain Lab Data 06/23/23 01:55 06/23/23 01:55 Labs: Lab Results 06/23/23 Range/Units 01:55 WBC 9.8 (4.5-11.0) X10^3/uL RBC 4.42 (4.0-5.2) X10^6/uL Hgb 13.1 (12.0-16.0) g/dL Hct 37.7 (36-46) % MCV 85.4 (80-100) fL MCH 29.6 (26-34) PG MCHC 34.7 (30-36) % RDW 13.4 (11.6-14.8) % Plt Count 206 (150-400) X10^3/uL Neut % (Auto) 79.8 H (50-75) % Lymph % (Auto) 13.6 L (25-40) % Gem % (Auto) 5.5 (3-14) % Eos % (Auto) 0.7 L (2-4) % Baso % (Auto) 0.4 (0-2) % Neut # (Auto) 7900 H (3964-1692) /uL Lymph # (Auto) 1300 (1444-8382) /uL Gem # (Auto) 500 (0-900) /uL Eos # (Auto) 100 (0-450) /uL Baso # (Auto) 0 (0-100) /uL Sodium 138 (137-145) mmol/L Potassium 3.9 (3.4-5.1) mmol/L Chloride 108 H (98-107) mmol/L Carbon Dioxide 25 (22-32) mmol/L BUN 22 H (7-17) mg/dL Creatinine 0.54 (0.52-1.04) mg/dL Estimated GFR > 60 (>60) mL/min BUN/Creatinine Ratio 40.7 H (6-22) Glucose 140 H (70-100) mg/dL Calcium 9.3 (8.4-10.2) mg/dL Total Bilirubin 0.6 (0.2-1.3) mg/dL AST 24 (14-36) IU/L ALT 12 (<35) IU/L Alkaline Phosphatase 87 (38-126) U/L Total Protein 7.2 (6.3-8.2) g/dL Albumin 4.1 (3.5-5.0) g/dL Globulin 3.1 (1.7-4.1) g/dL Albumin/Globulin Ratio 1.3 (1.0-2.8) Lipase 595 H (23-300) U/L Point of care testing: Urine Dip Bedside Urine Glucose Negative Bedside Urine Bilirubin - Negative Bedside Urine Ketone - Negative Urine Specific [place] 1.02 Bedside Urine Occult Blood - Negative Bedside Urine pH 6.5 Bedside Urine Protein - Negative Bedside Urine Urobilinogen - Negative Bedside Urine Nitrite - Negative Bedside Urine Leukocytes - Negative Esterase Imaging Data CT scan - abdomen/pelvis: Radiologist's Impression: Appendicolith with the acute appendicitis no free air or abscess. Small bowel enteritis, increased stool burden. No perforation. Stable 5 mm pulmonary right lower lobe nodule. Mild cardiomegaly. MDM Narrative Medical decision making narrative: 57-year-old female comes to the emergency department with complaint of fairly acute onset of right-sided abdominal pain upper and lower with vomiting. Patient's labs white count of 9.8 hemoglobin of 13 platelets of 206 leftward shift. Chemistry shows sodium 138 potassium 3 9 chloride 108 with a BUN 22, creatinine 0.54 with glucose of 140 normal LFTs lipase is 595. Point of care urine is negative Patient does have allergy with hives to amoxicillin/Augmentin penicillin type medications. NPO since last night around 7 or 8:00 a.m. at night on the 21 of [address] Dr[address] Alvarenga, accepts for appendicitis. Discussed patient has remote history of heart surgery at age 3 or 4 but otherwise no daily medications. Plan for Levaquin secondary to her allergies, NPO likely this afternoon for surgery. Patient updated regarding plan. Discharge Plan Departure Patient Disposition: Admitted As Inpatient Clinical Impression: Acute appendicitis Admit Date/Time: 06/23/23 04:38 Admit Provider: Valerie Alvarenga
--- NOTE | 2023-06-23 02:38 | DI.CT.S_ITS ---
PROCEDURE: CT ABDOMEN PELVIS W CON INDICATIONS: r abd pain upper and lower, vomiting TECHNIQUE: After the administration of intravenous contrast, axial sections acquired from the lung bases to the pubic symphysis. Coronal and sagittal reformats were performed. For radiation dose reduction, the following was used: automated exposure control, adjustment of mA and/or kV according to patient size. COMPARISON: [facility], CT, CT ABDOMEN PELVIS W CON, 05/06/2021, 2:53. FINDINGS: Lower thorax: Small 5 mm pulmonary nodule right lower lobe remains unchanged from the prior exam Liver: Normal in size and attenuation. No contour deformity present. Biliary system: No calcified cholelithiasis or pericholecystic inflammation. No intra or extrahepatic bile duct dilatation. Pancreas: Unremarkable without mass or inflammation evident. Spleen: Normal in size and density. Adrenals: Normal morphology and density. Reproductive system: Unremarkable as visualized. Urinary system: Normal renal size and attenuation. No renal calculi, hydronephrosis, or solid mass present. Urinary bladder unremarkable. Gastrointestinal system: The stomach appears unremarkable. Moderate fecal debris in the rectum. Multiple diverticula arise from the sigmoid colon without evidence of diverticulitis. Proximal small bowel also does show wall thickening. No pneumatosis Appendix: The appendix is dilated and inflamed with periappendiceal inflammatory change and 7 mm appendicolith in proximal appendix as well as second 5 mm calculus in the distal appendix. No evidence organized abscess free air. Peritoneal spaces: No mesenteric or retroperitoneal adenopathy. No free air. No free fluid. Vasculature: The IVC, aorta and iliac vasculature are unremarkable. Abdominal wall: Abdominal wall intact without evidence of ventral or inguinal hernias. Musculoskeletal: Normal bone mineralization. No acute fractures. IMPRESSION: 1. Acute appendicitis. Appendix is dilated, flamed, contains at least 2 separate appendicoliths. No organized abscess or free air. 2. Proximal small bowel wall thickening and distention reflect enteritis, probably reactive. No obstruction. Note: This final report is concordant with the preliminary after-hours interpretation provided by [employer] Approved by: Feroz Easley M.D. on 06/23/2023 at 9:24
[2023-06-23 03:00] LABS: Add Manual Diff / Slide Review NO; Basophils Absolute Auto 0 /uL (0-100); Basophils Percent Auto 0.4 % (0-2); Eosinophils Absolute Auto 100 /uL (0-450); Eosinophils Percent Auto 0.7 % (2-4); Hematocrit 37.7 % (36-46); Hemoglobin 13.1 g/dL (12.0-16.0); Lymphocytes Absolute Auto 1300 /uL (1100-4500); Lymphocytes Percent Auto 13.6 % (25-40); Mean Corpuscular HGB Conc 34.7 % (30-36); Mean Corpuscular Hemoglobin 29.6 PG (26-34); Mean Corpuscular Volume 85.4 fL (80-100); Monocytes Absolute Auto 500 /uL (0-900); Monocytes Percent Auto 5.5 % (3-14); Neutrophils Absolute Auto 7900 /uL (1500-7000); Neutrophils Percent Auto 79.8 % (50-75); Platelet Count 206 X10^3/uL (150-400); Red Blood Cell Count 4.42 X10^6/uL (4.0-5.2); Red Cell Distribution Width 13.4 % (11.6-14.8); White Blood Cell Count 9.8 X10^3/uL (4.5-11.0)
[2023-06-23] MEDS: SODIUM CHLORIDE 0.9% 1,000 ML 1000 ML IV (03:03)
[2023-06-23] MEDS: METOCLOPRAMIDE 10 MG/2 ML INJ IV (03:05)
[2023-06-23] MEDS: KETOROLAC 30 MG/ML VIAL 15 MG IV (03:06)
[2023-06-23 03:13] LABS: Alanine Aminotransferase 12 IU/L (<35); Albumin 4.1 g/dL (3.5-5.0); Albumin Globulin Ratio 1.3 (1.0-2.8); Alkaline Phosphatase 87 U/L (38-126); Aspartate Aminotransferase 24 IU/L (14-36); BUN Creatinine Ratio 40.7 (6-22); Bilirubin Total 0.6 mg/dL (0.2-1.3); Blood Urea Nitrogen 22 mg/dL (7-17); Calcium 9.3 mg/dL (8.4-10.2); Carbon Dioxide 25 mmol/L (22-32); Chloride 108 mmol/L (98-107); Estimated Glomerular Filt Rate > 60 mL/min (>60); Globulin 3.1 g/dL (1.7-4.1); Glucose 140 mg/dL (70-100); HEMOLYSIS < 15 (0-50); Lipase 595 U/L (23-300); Potassium 3.9 mmol/L (3.4-5.1); Sodium 138 mmol/L (137-145); Total Protein 7.2 g/dL (6.3-8.2)
[2023-06-23] MEDS: levoFLOXacin 750 MG/150 ML PIGGYBACK 100 MG IV (04:40)
[2023-06-23] MEDS: SODIUM CHLORIDE 0.9% 1,000 ML 125 ML IV ×2 (04:56→15:40)
[2023-06-23] MEDS: MORPHINE 4 MG/ML INJ IV (05:25)
[2023-06-23 08:41] LABS: Add Manual Diff / Slide Review NO; Basophils Absolute Auto 0 /uL (0-100); Basophils Percent Auto 0.4 % (0-2); Eosinophils Absolute Auto 0 /uL (0-450); Eosinophils Percent Auto 0.1 % (2-4); Hemoglobin 12.3 g/dL (12.0-16.0); Lymphocytes Absolute Auto 1100 /uL (1100-4500); Lymphocytes Percent Auto 11.1 % (25-40); Mean Corpuscular HGB Conc 35.1 % (30-36); Mean Corpuscular Hemoglobin 30.2 PG (26-34); Monocytes Absolute Auto 600 /uL (0-900); Monocytes Percent Auto 5.8 % (3-14); Neutrophils Absolute Auto 7900 /uL (1500-7000); Neutrophils Percent Auto 82.6 % (50-75); Platelet Count 167 X10^3/uL (150-400); Red Blood Cell Count 4.08 X10^6/uL (4.0-5.2); Red Cell Distribution Width 13.5 % (11.6-14.8); White Blood Cell Count 9.5 X10^3/uL (4.5-11.0)
[2023-06-23 08:49] LABS: Lipase 176 U/L (23-300); Triglycerides 67 mg/dL (35-150)
[2023-06-23] MEDS: OXYCODONE IR 10 MG TABLET PO (10:33)
--- NOTE | 2023-06-23 10:49 | PM.HP.1 ---
History of Present Illness History of Present Illness Date Patient Seen: 06/23/23 Time Patient Seen: 10:49 Chief complaint: abd pain, vomiting Narrative: CT scan confirmed acute appendicitis with fecal lith. Less than 24 hours of abdominal pain RLQ that is sharp and worse with movement. Also has elevated lilpase on labs which will be trended. +nausea +vomiting +anorexia -temp PFSH Medical History Dyslipidemia Right-sided temporomandibular joint pain-dysfunction syndrome Rash due to allergy Left lower lobe pulmonary nodule (04/2021) Hepatomegaly (04/2021) Encounter for wellness examination in adult (03/2021) Dyspareunia Vertigo (09/25/19) Pharyngitis Pap smear of cervix shows high risk HPV present (~04/2019) MRSA elsewhere/NOS (~2017) History of chicken pox Raynaud's phenomenon Surgical History History of open heart surgery (~1970) Family History Mother Cancer Hypertension Stroke Brother Diabetes mellitus Hypertension Hyperlipidemia Stroke Heart disease Obesity Grandfather Diabetes mellitus Social History marital status: household members: spouse education level: college occupational status: employed current occupational exposures/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[employer]) dolores/adventist: Evangelical travel history: recurrent leisure activities: other other: Walking and Running seatbelt use: always helmet use: Yes water heater temp set < 120 deg: Yes working smoke detector in home: Yes fire extinguisher in home: Yes carbon monox detector in home: Yes firearms in home: No do you feel safe at home: Yes Smoking Status: Never smoker second hand exposure: No alcohol intake: never substance use type: does not use during the past year weight has: remained stable well-balanced diet: daily or most days daily servings fruits/ve-4 caffeine: Yes (1-3 drinks per week soda) eating out: 1-3 times/week Type(s) of exercise: walking and running frequency: 5-6 times per week duration: 60-90 minutes/day additional social history: Travel history:[place] and several trips to [facility] Meds Home Medications and Allergies Home Medications Medication Instructions Recorded Confirmed Type multivitamin 1 tab PO DAILY 01/22/19 06/23/23 History Allergies Allergy/AdvReac Type Severity Reaction Status Date / Time amoxicillin [From Augmentin] Allergy Intermediate Rash Verified 06/23/23 01:42 clavulanic acid Allergy Intermediate Rash Verified 06/23/23 01:42 [From Augmentin] Review of Systems Review of Systems ROS: Yes All systems reviewed with the patient and are negative except as otherwise documented Exam Vital Signs (past 8 hours): - 06/23/23 03:00 06/23/23 03:05 06/23/23 03:05 Temperature Pulse Rate 66 66 Respiratory Rate Blood Pressure 121/73 Pulse Oximetry 98 98 Oxygen Delivery Method Room Air Room Air Oxygen Flow Rate 06/23/23 03:37 06/23/23 03:37 06/23/23 04:00 Temperature Pulse Rate 72 72 Respiratory Rate Blood Pressure 128/74 Pulse Oximetry 99 99 Oxygen Delivery Method Room Air Room Air Oxygen Flow Rate 06/23/23 04:00 06/23/23 04:30 06/23/23 04:30 Temperature Pulse Rate 75 Respiratory Rate Blood Pressure 114/65 105/63 Pulse Oximetry 98 Oxygen Delivery Method Oxygen Flow Rate 06/23/23 05:00 06/23/23 05:00 06/23/23 05:30 Temperature Pulse Rate 72 77 Respiratory Rate 18 Blood Pressure 110/64 Pulse Oximetry 99 99 Oxygen Delivery Method Oxygen Flow Rate 06/23/23 05:30 06/23/23 06:36 06/23/23 07:52 Temperature 96.9 F L 97.4 F L Pulse Rate 70 76 Respiratory Rate 17 16 Blood Pressure 108/65 107/62 102/62 Pulse Oximetry 99 Oxygen Delivery Method Oxygen Flow Rate 0 99 Oxygen Delivery Method Room Air Oxygen Flow Rate 99 Const General: cooperative and acute distress Nutritional Appearance: average body habitus Orientation: alert, awake and oriented x3 HENMT Head: normocephalic and atraumatic Ears: hearing grossly normal bilaterally Eyes Sclera: sclerae normal Neck Neck: trachea midline and No JVD Resp Effort & Inspection: normal respiratory effort and able to speak in complete sentences Cardio Rate: regular rate Rhythm: regular rhythm GI Palpation: soft and tender (RLQ) Skin General: elasticity normal and turgor normal Neuro General: patient alert, patient awake, patient oriented x3 and moves all extremities Speech: speech normal Psych Appearance: grossly normal Mental Status: mental status grossly normal Attitude: cooperative Judgment: judgment good Objective Labs 06/23/23 08:35 06/23/23 01:55 Labs: Laboratory Results - last 24 hr 06/23/23 06/23/23 01:55 08:35 WBC 9.8 9.5 RBC 4.42 4.08 Hgb 13.1 12.3 Hct 37.7 35.0 L MCV 85.4 86.0 MCH 29.6 30.2 MCHC 34.7 35.1 RDW 13.4 13.5 Plt Count 206 167 Neut % (Auto) 79.8 H 82.6 H Lymph % (Auto) 13.6 L 11.1 L [place] % (Auto) 5.5 5.8 Eos % (Auto) 0.7 L 0.1 L Baso % (Auto) 0.4 0.4 Neut # (Auto) 7900 H 7900 H Lymph # (Auto) 1300 1100 [place] # (Auto) 500 600 Eos # (Auto) 100 0 Baso # (Auto) 0 0 Sodium 138 Potassium 3.9 Chloride 108 H Carbon Dioxide 25 BUN 22 H Creatinine 0.54 Estimated GFR > 60 BUN/Creatinine Ratio 40.7 H Glucose 140 H Calcium 9.3 Total Bilirubin 0.6 AST 24 ALT 12 Alkaline Phosphatase 87 Total Protein 7.2 Albumin 4.1 Globulin 3.1 Albumin/Globulin Ratio 1.3 Triglycerides 67 Lipase 595 H 176 D Assessment & Plan Assessment & Plan narrative: Acute appendicitis IV antibiotics with lap appy Time Spent With Patient Time with patient: less than 30 minutes
--- NOTE | 2023-06-23 11:01 | CM.DANOTE ---
Initial DCP Assessment Visit Note Reviewed EMR and team rounds for pt's medical status and updates. Met with pt at bedside to introduce self and role, pt found to be alert/oriented/comfortable. She is NPO for scheduled laparoscropic appendectomy later this morning. Payor: Brianda Hill Attending: Valerie Alvarenga Pt is a 57 year-old F who presented to the ED last evening with c/o R-sided abdominal pain w/nausea and vomiting which started early in the evening and persisted. CT Abd/Pelvis in the ED revealed acute appendicitis. Pt was started on IV ABO's/fluids, surgery was consulted. Decision was made to admit to the floor for further eval/tx, including NPO in preparation for surgery, which will be completed today. Pt lives independently at baseline in her own home with her . No anticipated home d/c needs at this time. DCP will continue to follow and assist with any final resource/support needs. Discharge Planning/Care Management CM Discharge Assessment Start: 06/23/23 10:54 Freq: Status: Active Protocol: Document 06/23/23 10:54 DPL (Rec: 06/23/23 11:01 DPL [id number]) Discharge Planning Assessment Assigned Scientific Manager JORGE Rodriguez Advance Directives? No History Provided By Patient,Medical Record Expected Length of Stay 2 Has Patient been admitted in last 30 No days? Prior Living Arrangements House Household Members spouse Type of transporation used prior to Drives own vehicle admit Independent with ADL's Yes Is patient alert and oriented? Yes Comment N/A Caregiver for Another No Comment N/A Comment None Comment Post-op f/u with Dr. Alvarenga. Barriers to Discharge No Discharge Plan Home Transportation Arrangement Spouse Referrals Initiated None needed Whiteboard Updated in Patient Room with Yes name and ext. # of Scientific Manager Review Status In Process Please Provide Date Initial DC 06/23/23 Assessment Was Performed
[2023-06-23] MEDS: LACTATED RINGERS 1,000 ML 42 ML IV (13:58)
--- NOTE | 2023-06-23 14:42 | SUR.OPER ---
Supine on padded OR bed, head on pillow, RIGHT arm secured on padded arm board at <90 degrees abduction, LEFT ARM PADDED AND TUCKED, legs uncrossed, safety belt at thigh, tape over blanket over lower legs.
[2023-06-23] MEDS: BUPIVACAINE 0.25% (PF) 30 ML, EPINEPHrine 0.15 MG INJ (14:50)
--- NOTE | 2023-06-23 15:30 | PM.OP.1 ---
Operative Date/Time/Diagnoses Date of procedure: 06/23/23 Time of procedure: 15:31 Pre-op diagnosis: Acute appendicitis Post-op diagnosis: same Procedure & Clinicians Procedure: Laparoscopic appendectomy Same procedure as scheduled: Yes Indications: Acute appendicitis with fecalith Surgeon: Valerie Alvarenga Click Yes if Unassisted: Yes Anesthesia Type: General and Local Operative Notes Findings: Suppurative appendicitis without rupture Closure Type: primary Specimen(s): other (Appendix) Estimated Blood Loss (mL): 20 Blood products transfused: none Procedure in detail: Preop diagnosis: Acute appendicitis Postop diagnosis: Same Operative procedure: Laparoscopic appendectomy. Surgeon: Bouchra Alvarenga MD Findings: Suppurative appendicitis without rupture Procedure: Patient placed in a supine position. Prepped and draped sterile fashion to expose her abdomen. Infraumbilical port site was placed using open technique and a 12 mm port. Insufflation began all other ports were placed under direct vision. These included a 5 mm in the suprapubic area and a 5 mm in the left lateral abdomen. Appendix was identified and lifted cephalad for exposure. Appendiceal mesentery was taken down with the electrocautery and excellent hemostasis. The base of the appendix was healthy in nature and we used a blue load LUIZ stapling device to amputate it. Appendix was then placed into an Endo-Catch bag and pulled through the infraumbilical port site intact. I suctioned any residual blood from the operative site and physiologic fluid from the pelvis prior to removal of all ports and closure. Closure consisted of interrupted 0 Vicryl for fascial closure. Skin was closed with a running 4-0 Vicryl. Steri-Strips and sterile dressings were placed. Patient was awakened, extubated, taken to recovery room in stable condition. Needle, instrument, sponge counts were correct. Specimen: Appendix Blood loss: 20 mL Complications: none Post-operative Condition: stable Disposition: PACU
--- NOTE | 2023-06-23 15:44 | PC.NURSE ---
Patient arrives to floor from surg. at 1530. Patient states no nausea or vomiting and pain is minimal to none. Patient is resting but arrousable. States she is very groggy at this time and wishes to rest. Spouse and patient is aware that she may eat or drink but must be able to sit up and be awake.
[2023-06-23] MEDS: HYDROCODONE/ACET 5/325 TABLET 1 TAB PO ×2 (17:09→23:07)
[2023-06-23] MEDS: CELECOXIB 200 MG CAPSULE PO (20:34)
[2023-06-24] MEDS: SODIUM CHLORIDE 0.9% 1,000 ML 125 ML IV ×2 (00:13→08:44)
[2023-06-24 03:40] VITALS: BP 110/63; PULSE 76; RESP 17; TEMP 36.1; O2SAT 96
[2023-06-24] MEDS: HYDROCODONE/ACET 5/325 TABLET 1 TAB PO (06:11)
[2023-06-24 08:03] VITALS: BP 87/52; PULSE 67; RESP 18; TEMP 36.6; O2SAT 98
[2023-06-24 08:07] VITALS: BP 90/63
--- NOTE | 2023-06-24 08:22 | PC.NURSE ---
Patient is alert and oriented x4, she denies pain and was given hydrocodone around 0600 this morning. When Patient tech checked her blood pressure, it was 87 systolic, rechecked 30 minutes later and bp 94/56. She denies sob or any discomfort. States that her chest felt slightly tight, but she was feeling well this morning. She denies chest pain or abdominal pain. IVF and patients supportive and at bedside. She is eating breakfast now.
[2023-06-24] MEDS: CELECOXIB 200 MG CAPSULE PO (08:43)
--- NOTE | 2023-06-24 10:59 | CM.DPC ---
DCP Discharge Home Per Surgeon, pt tolerating diet and voiding independently and medically stable to discharge home today with outpt f/u and no identified barriers to discharge. Per RN, pt had her breakfast and preference is home today and supportive spouse bedside. Plan: Patient to discharge home this morning via spouse POV and outpt f/u and no further SW needs at this time. JORGE Soliz
== END 2023-06-24 10:22 | disposition home or self-care (01) ==
LOC: ED 04:35 → AC 05:39
PROVIDERS: Admitting Provider Surgery; Emergency Provider Emergency Medicine; PCP Registered Nurse Diabetes Educator; Referring Provider Emergency Medicine; Visit Provider Surgery
PROC: 0DTJ4ZZ Resection of Appendix, Percutaneous Endoscopic Approach (ICD-10-PCS; CPT 44970; principal; 2023-06-23 12:00)
DX: K35.80 Unspecified acute appendicitis (principal)
CPT/HCPCS: 44970; 36415; 74177; 80053; 81003; 83690; 84478; 85025; 96361; 96365; 96366; 96375; 99221; 99284; G0378; J0171; J1100; J1885; J1956; J2250; J2270; J2405; J2765; J3010; J3490; Q9967

== ENCOUNTER → 2023-10-09 15:24 | Outpatient (CLI) | payer OTHER, SELFPAY ==
[2023-06-23 05:56] VITALS: BMI 26.6
--- NOTE | 2023-10-09 15:25 | DI.RAD.S_ITS ---
PROCEDURE: XR ELBOW LT MIN 3V INDICATIONS: Left elbow pain; suspect bursitis Left elbow TECHNIQUE: 3 views of the elbow were acquired. COMPARISON: None. FINDINGS: Bones: No acute fractures or dislocations. No suspicious bony lesions. Soft tissues: No elbow joint effusion. No suspicious soft tissue calcifications. Soft tissue swelling over the olecranon. IMPRESSION: No acute osseous abnormality. No significant joint effusion. Soft tissue prominence over the olecranon is suspicious for an olecranon bursal effusion or bursitis. Approved by: Arnel Villela M.D. on 10/09/2023 at 21:53
== END ==
PROVIDERS: PCP Registered Nurse Diabetes Educator; Referring Provider Physician Assistant; Visit Provider Physician Assistant
DX: M70.32 Other bursitis of elbow, left elbow (principal); M25.522 Pain in left elbow; R73.01 Impaired fasting glucose
CPT/HCPCS: 36415; 73080; 83036

== ENCOUNTER → 2023-10-09 15:47 | Outpatient (CLI) | payer OTHER, SELFPAY ==
[2023-06-23 05:56] VITALS: BMI 26.6
== END ==
PROVIDERS: PCP Registered Nurse Diabetes Educator; Referring Provider Physician Assistant; Visit Provider Physician Assistant
DX: R73.01 Impaired fasting glucose (principal)
CPT/HCPCS: 36415; 83036